=== PATIENT | female | born 1980 | race Caucasian/White ===

== ENCOUNTER 2022-10-22 02:10 | Day surgery (SDC) | payer OTHER, SELFPAY ==
[2022-10-21 15:52] VITALS: BMI 26.8
[2022-10-22] VITALS (14 sets, daily range): BP systolic 105–151; BP diastolic 66–92; PULSE 70–87; RESP 14–18; TEMP 36.6–36.8; O2SAT 96–100; BMI 27.0
[2022-10-22 07:41] LABS: Basophils Percent Auto 0.4 % (0.2-1.2); Eosinophils Absolute Auto 0.2 K/mm3 (0-0.3); Eosinophils Percent Auto 1.7 % (0-4.4); Hematocrit 38.6 % (37.0-47.0); Hemoglobin 12.8 g/dL (12.0-15.0); Immature Granulocyte Absolute 0.04 K/mm3 (0.00-0.031); Immature Granulocyte Percent A 0.4 % (0-0.5); Lymphocytes Absolute Auto 3.35 K/mm3 (0.9-3.2); Lymphocytes Percent Auto 34.4 % (18.3-44.2); Mean Corpuscular HGB Conc 33.2 g/dl (32-36); Mean Corpuscular Hemoglobin 31.1 pg (26-34); Mean Corpuscular Volume 93.9 fl (80-100); Mean Platelet Volume 10.8 fl (7.4-10.4); Monocytes Absolute Auto 0.5 K/mm3 (0.1-0.6); Monocytes Percent Auto 5.4 % (2.6-8.5); Neutrophils Absolute Auto 5.6 K/mm3 (1.3-6.7); Neutrophils Percent Auto 57.7 % (45.5-73.1); Platelet Count Result 228 k/mm3 (150-375); Red Blood Count 4.11 M/mm3 (4.2-5.4); Red Cell Distribution Width 13.5 % (11.5-14.5); White Blood Count 9.7 K/mm3 (4.5-10.0)
[2022-10-22 07:50] LABS: Anion Gap 7 mmol/L (8-16); Blood Urea Nitrogen 20 mg/dL (7-17); Calcium 8.9 mg/dL (8.4-10.2); Carbon Dioxide 24 mmol/L (22-30); Chloride 106 mmol/L (98-107); Estimated CRCL calculation 103 ml/min; Estimated Glomerular Filt Rate > 60; Glucose 107 mg/dL (65-110); Potassium 3.5 mmol/L (3.4-5.0); Sodium 137 mmol/L (137-145)
--- NOTE | 2022-10-22 09:00 | WPDHPUPDATE1 ---
History and Physical Update Update Date/Time: 10/22/22 09:00 History and Physical has been reviewed, including an updated exam of the patient. There are NO changes in the patient's condition. Risks, benefits, and alternatives have been discussed and questions answered. Patient agrees to proceed with procedure.
--- NOTE | 2022-10-22 09:00 | WPDMODSED ---
Moderate Sedation Note-Pt Data Patient Data Diagnosis: Anginal symptoms in the setting of abnormal coronary CTA Present Complaint: Anginal symptoms in the setting of abnormal coronary CTA Procedure to be performed/Plan: Coronary angiography, [facility], +/- PCI Allergies Allergy/AdvReac Type Severity Reaction Status Date / Time codeine AdvReac Unknown Nausea Verified 10/22/22 07:23 Home Medications Medication Instructions Recorded Confirmed Type vits no.126-ferrous fum 1 tablet PO DAILY 01/10/20 10/21/22 History 28 mg iron-folic acid 800 mcg tablet (Classic ) cetirizine 10 mg tablet (24Hour 10 mg PO DAILY 03/16/20 10/21/22 History Allergy) albuterol sulfate 90 mcg/actuation 2 puff inhalation Q4-6H PRN 07/03/21 10/22/22 Rx aerosol inhaler (Ventolin HFA) shortness of breath or wheezing #8.5 grams escitalopram oxalate 20 mg tablet 20 mg PO DAILY #90 tabs 01/13/22 10/21/22 Rx (Lexapro) pravastatin 20 mg tablet 20 mg PO QHS #90 tabs 10/01/22 10/21/22 Rx aspirin 81 mg tablet,delayed 81 mg PO DAILY 10/08/22 10/21/22 History release lisinopril 2.5 mg tablet 2.5 mg PO DAILY 10/21/22 10/21/22 History Current Medications: Active Medications Sodium Chloride (Normal Saline Iv) 500 mls @ 100 mls/hr IV CONT .Q5H BEBO Sedation/Anesthesia: No previous sedation/anesthesia problems (including family history). [facility] Past Medical History Medical History Anxiety Broken jaw Hypertension LBBB (left bundle branch block) Overweight Surgical History Surgical History Calypso teeth removed 06/29/2018 Family History Family History Mother Hypertension Sibling Hypertension Father Hypertension Family history of congestive heart failure Social History Social History Social History: Caffeine-soda daily Smoking packs per day: 1 Smoking cigarettes per day: 20.0 Years smoked: 20 Smoking pack-years: 20.00 Smoking status: Current every day smoker Tobacco type: cigarettes Alcohol intake: never Substance use type: does not use Living arrangements: with family Spiritual care concerns: No Mod Sed Physical Exam Physical Exam Pre Procedural Exam: Normal: Appearance, Lungs, Heart Rate, Heart Rhythm, Neuro Exam, Abdomen, Extremities and Skin Hours since solid foods: 12 Hours since liquid intake: 8 Mallampati Classification: class II Internal Medicine - PN: Obj Da Vital Signs Vital Signs: Vital Signs - 24 hr 10/22/22 07:26 Temperature 36.6 C Pulse Rate 87 Respiratory Rate 14 Blood Pressure 105/92 H Pulse Oximetry 99 Oxygen Delivery Room Air Meds/Results Medications: Active Medications Generic Name Dose Route Start Last Admin Trade Name Freq PRN Reason Stop Dose Admin Sodium Chloride 500 mls @ 100 mls/hr 10/22/22 07:00 Normal Saline Iv IV CONT .Q5H BEBO Labs 10/22/22 07:36 10/22/22 07:35 Labs: Laboratory Results - last 24 hr 10/22/22 10/22/22 07:35 07:36 WBC 9.7 RBC 4.11 L Hgb 12.8 Hct 38.6 MCV 93.9 MCH 31.1 MCHC 33.2 RDW 13.5 Plt Count 228 MPV 10.8 H Immature Gran % (Auto) 0.4 Neut % (Auto) 57.7 Lymph % (Auto) 34.4 [place] % (Auto) 5.4 Eos % (Auto) 1.7 Baso % (Auto) 0.4 Lymph # (Auto) 3.35 H [place] # (Auto) 0.5 Eos # (Auto) 0.2 Baso # (Auto) 0.0 Abs Immat Gran (auto) 0.04 H Absolute Neuts (auto) 5.6 Absolute Nucleated RBC 0.0 Nucleated RBC % 0.0 Sodium 137 Potassium 3.5 Chloride 106 Carbon Dioxide 24 Anion Gap 7 L BUN 20 H Creatinine 0.60 L Estim Creat Clear Calc 103 Estimated GFR > 60 Glucose 107 Calcium 8.9 ASA Classification/Sedation ASA Classification/Sedation ASA Class: III Emergent: No Risks:
--- NOTE | 2022-10-22 09:01 | WPDCARDPROC ---
Cardiac Cath Procedure Note Date of procedure:: 10/22/22 Performing physician:: CATHETERIZATION LABORATORY REPORT Procedure Date: 10/22/2022 Material Control Manager: Miguel Freed M.D., [facility]? Referring Physician: Dr. Alicia ? Anesthesia: Versed and Fentanyl were ordered and given in my presence at 09:08, procedure ended at 09:45. Supervision of nurse monitored moderate sedation with Versed and Fentanyl was provided for 37 minutes. Total of Versed 2mg and Fentanyl 100mcg were administered by the Public Works Commissioner RN Gretchen Dennison. Pre-op Diagnosis: Coronary artery disease Post-op Diagnosis: Non-obstructive coronary artery disease Left dominant coronary artery system Left ventricular end-diastolic pressure of 13mmHg Procedure(s): Left heart catheterization with coronary angiography Access Site: Right radial artery Right common femoral artery Brief History and Clinical Indications: Patient is a 42-year-old female with a history of hypertension, tobacco dependence who is referred for [facility] for abnormal CCTA. All risks, benefits and alternatives to left heart catheterization with or without percutaneous coronary intervention was discussed at length with the patient. Risk of complications including but not limited to bleeding, infection, arrhythmia, stroke, worsening kidney function, blood loss, groin hematoma, limb loss, emergency coronary artery bypass grafting, and even were discussed with the patient and all questions were answered. The patient understood and wished to proceed. Time out called, patient name, date of , medical record number, allergies, procedure performed, identify Material Control Manager, patient and staff member concurred with accurate data, procedure carried on. Findings: LEFT HEART CATHETERIZATION FINDINGS: 1. Left main: The left main coronary artery is widely patent without any significant obstructive disease. 2. Left anterior descending: The proximal LAD has a mild 30-40% stenosis. The mid LAD has a mild 30-40% stenosis. The remainder of the LAD has mild luminal irregularities. The diagonal branches have mild luminal irregularities without any significant obstructive angiographic disease. 3. Left circumflex: The left circumflex artery and the main marginal branches have mild luminal irregularities without any significant obstructive angiographic disease. The left circumflex is the dominant vessel. 4. Right coronary artery: The RCA has mild luminal irregularities without any significant obstructive angiographic disease. The RCA is the non-dominant vessel. 5. Left ventricle: A. End-diastolic pressure 13mmHg. B. LV gram deferred. C. No significant gradient across aortic valve on catheter pullback. Description of Procedure: Informed consent signed and placed in the chart. Patient transferred to curb and gutter laborer room. Prepped and draped in usual sterile fashion. 2% lidocaine injected subcutaneously in right wrist area. 22-gauge venipuncture catheter used to access the right radial artery with the Seldinger technique. 6-FR slender sheath placed in right radial artery. Nitroglycerine and Verapamil were given intraarterial through the sheath. Versacore wire advanced under fluoroscopy 5F FL4 diagnostic catheter crossed aortic valve to obtain LVEDP, LV angiogram deferred. Unable to engage the coronary arteries from right radial access site due to aorta tortuosity. Therefore, femoral access pursued. 2% lidocaine in right groin area. Micropuncture needle used to access right common femoral artery with Seldinger technique under fluoroscopic guidance. J wire advanced, micropuncture cannula placed. Right iliofemoral angiogram performed, access confirmed and micropuncture cannula exchanged for 5-FR sheath. 5F FL4 diagnostic catheter engaged Left Main Coronary Artery. 5F FR4 diagnostic catheter engaged Right Coronary Artery. Multiple orthogonal angiogram obtained and reviewed Hemostasis was achieved by 6F Angioseal. Hemostasis w
== END 2022-10-22 14:20 | disposition home or self-care (01) ==
PROVIDERS: PCP Internal Medicine; Visit Provider Internal Medicine
PROC: 4A023N7 Measurement of Cardiac Sampling and Pressure, Left Heart, Percutaneous Approach (ICD-10-PCS; CPT 93452; principal; 2022-10-22 08:30)
PROC: (CPT 36140; 2022-10-22 08:30)
DX: I25.10 Atherosclerotic heart disease of native coronary artery without angina pectoris (principal); R93.1 Abnormal findings on diagnostic imaging of heart and coronary circulation; I10 Essential (primary) hypertension; F41.9 Anxiety disorder, unspecified; I44.7 Left bundle-branch block, unspecified; Z79.51 Long term (current) use of inhaled steroids; Z79.82 Long term (current) use of aspirin; F17.210 Nicotine dependence, cigarettes, uncomplicated
CPT/HCPCS: 36140; 36415; 80048; 85025; 93458; A9270; C1760; C1769; C1887; C1894; G0269; J1644; J2250; J3010; J7040